=== PATIENT | female | born 1975 | race Caucasian/White ===

== ENCOUNTER 2016-09-16 22:06 | Emergency (ER) | payer SELFPAY ==
[~2016-09-16] VITALS: Ht 165.1 cm; Wt 88.0 kg
[2016-09-16 22:14] VITALS: BP 110/60; PULSE 68; RESP 16; TEMP 97.2; O2SAT 99
[2016-09-16] MEDS ORDERED: SODIUM CHLOR 0.9% 1000 ML INJ 1,000 ML IV SCH (22:28)
--- NOTE | 2016-09-16 22:29 | PD ---
HPI Chief Complaint: Flank/Kidney Pain Time Seen by Provider: 22:29 Travel History International Travel<30 days: No Contact w/Intl Traveler<30days: No Traveled to known affect area: No History of Present Illness HPI 41-year-old female presents to the emergency department for evaluation right flank pain that radiates to the right groin. She states this started at 7:30 PM today. Patient states she had a mild upset stomach before that. She states this started with some mild right groin pain and then worsened. She states the pain is 8/10 now. Patient states she has had nephrolithiasis in the past, but states this pain is worse. She reports history of hysterectomy, appendectomy, C -section. She reports history of migraines. [facility] Past Medical History Headaches: Yes Kidney Stones: Yes Tetanus Vaccination: Unknown Influenza Vaccination: Yes ?: Not : 5 Para: 3 Past Surgical History Appendectomy: Yes Section: Yes (x2) Hysterectomy: Yes Social History Alcohol Use: No Tobacco Use: No Substance Use: No Allergies-Medications (Allergen,Severity, Reaction): Coded Allergies: No Known Allergies (Unverified , 09/16/16) Review of Systems Except as stated in HPI: all other systems reviewed are Neg Physical Exam Narrative GENERAL: Well-nourished, well-developed female patient, afebrile. SKIN: Focused skin assessment warm/dry. HEAD: Normocephalic. Atraumatic. EYES: No scleral icterus. No injection or drainage. NECK: Supple, trachea midline. No JVD or lymphadenopathy. CARDIOVASCULAR: Regular rate and rhythm without murmurs, gallops, or rubs. RESPIRATORY: Breath sounds equal bilaterally. No accessory muscle use. Lungs sounds are clear to auscultation. GASTROINTESTINAL: Abdomen soft and nondistended. Patient has tenderness over right upper and lower quadrants. MUSCULOSKELETAL: No cyanosis, or edema. BACK: Nontender without obvious deformity. Right CVA tenderness. Data Data Last Documented VS Vital Signs Date Time Temp Pulse Resp B/P Pulse Ox O2 Delivery O2 Flow Rate FiO2 09/16/16 22:28 16 09/16/16 22:14 97.2 68 110/60 99 Orders Morphine Inj (Morphine Inj) (09/16/16 22:30) Complete Blood Count With Diff (09/16/16 22:28) Comprehensive Metabolic Panel (09/16/16 22:28) Lipase (09/16/16 22:28) Urinalysis - C+S If Indicated (09/16/16 22:28) Ct Abd/Pel W/O Iv Contrast (09/16/16 22:28) Iv Access Insert/Monitor (09/16/16 22:28) Ecg Monitoring (09/16/16 22:28) Oximetry (09/16/16 22:28) Ondansetron Inj (Zofran Inj) (09/16/16 22:30) Sodium Chlor 0.9% 1000 Ml Inj (Ns 1000 M (09/16/16 22:28) Sodium Chloride 0.9% Flush (Ns Flush) (09/16/16 22:30) Ketorolac Inj (Toradol Inj) (09/16/16 22:30) MDM Medical Decision Making Medical Screen Exam Complete: Yes Emergency Medical Condition: Yes Medical Record Reviewed: Yes Differential Diagnosis Nephrolithiasis versus pyelonephritis versus UTI Narrative Course 41-year-old female presents to the emergency department for evaluation of right flank pain that radiates to the right groin. CBC, CMP, lipase, UA are ordered and pending. CT the abdomen/pelvis without contrast is ordered and pending. Patient is given normal saline 1 L IV bolus, morphine 4 mg IV, Toradol 30 mg IV , Zofran 4 mg IV. My attending physician, Dr. Noguera, will resume care and disposition. Brooke Infante Sep 16, 2016 22:29
[2016-09-16] MEDS ORDERED: ONDANSETRON HCL 4 MG/2 ML VIAL IVP ONE (22:30)
[2016-09-16] MEDS ORDERED: SODIUM CHLORIDE 0.9% FLUSH 10 ML FLUSH IV FLUSH PRN (22:30)
[2016-09-16] MEDS ORDERED: MORPHINE SULFATE 4 MG/ML INJ IV PUSH ONE (22:30)
[2016-09-16] MEDS ORDERED: KETOROLAC TROMETHAMINE 30 MG/ML (IVP) VIAL IVP ONE (22:30)
[2016-09-16 23:15] LABS: AUTOMATED NEUTROPHIL # 2.1 TH/MM3 (1.8-7.7); BASOPHIL % 0.1 % (0.0-2.0); LYMPH % 26.4 % (9.0-44.0); LYMPHOCYTE # 0.8 TH/MM3 (1.0-4.8); MEAN CELL VOLUME 91.3 FL (80.0-100.0); MEAN CORPUSCULAR HEMOGLOBIN 31.1 PG (27.0-34.0); MONO % 7.5 % (0.0-8.0); PLATELET COUNT 120 TH/MM3 (150-450); RED BLOOD COUNT 2.12 MIL/MM3 (4.00-5.30); RED CELL DISTRIBUTION WIDTH 12.9 % (11.6-17.2); WHITE BLOOD COUNT 3.2 TH/MM3 (4.0-11.0)
[2016-09-16 23:21] LABS: BACTERIA, URINE RARE /hpf; BLOOD, URINE TRACE (NEG); COMMENT (UR) CULT NOT INDICATED; CULTURE IF INDICATED CULT NOT INDICATED; GLUCOSE,URINE NEG (NEG); KETONE, URINE NEG (NEG); MUCUS URINE FEW /lpf (OCC); NITRITE,URINE NEG (NEG); PH, URINE 7.5 (5.0-8.5); SQUAMOUS EPITHELIAL CELL URINE 1 /hpf (0-5); URINE COLOR LIGHT-YELLOW (YELLW/STRAW)
[2016-09-16 23:24] VITALS: RESP 16; O2SAT 99
[2016-09-16 23:28] VITALS: RESP 16
[2016-09-16 23:33] LABS: ANION GAP 10 MEQ/L (5-15); AST (GOT) 12 U/L (15-37); BICARBONATE 22.8 MEQ/L (21.0-32.0); BLOOD UREA NITROGEN 15 MG/DL (7-18); CHLORIDE 111 MEQ/L (98-107); GLOMERULAR FILTRATION RATE 63 ML/MIN (>89); POTASSIUM 3.3 MEQ/L (3.5-5.1); SODIUM (NA) 144 MEQ/L (136-145)
[2016-09-16 23:34] LABS: ALT (GPT) 19 U/L (10-53)
[2016-09-16 23:36] LABS: ALKALINE PHOSPHATASE 61 U/L (45-117); TOTAL BILIRUBIN ADULT 0.4 MG/DL (0.2-1.0)
[2016-09-16 23:53] LABS: HEMO FLAGS AUTO DIFF
[2016-09-16 23:57] LABS: HEMATOCRIT 19.4 % (35.0-46.0)
--- NOTE | 2016-09-16 23:57 | RADRPT ---
EXAM DATE/TIME: 09/16/2016 23:29 [place] COMPARISON: No previous studies available for comparison. INDICATIONS : Right side flank pain. ORAL CONTRAST: No oral contrast ingested. RADIATION DOSE: 8.52 CTDIvol (mGy) MEDICAL HISTORY : Renal calculi. SURGICAL HISTORY : Appendectomy. Hysterectomy. section. ENCOUNTER: Initial ACUITY: 1 day PAIN SCALE: 10/10 LOCATION: Right flank TECHNIQUE: Volumetric scanning of the abdomen and pelvis was performed. Using automated exposure control and ad justment of the mA and/or kV according to patient size, radiation dose was kept as low as reasonably achievable to obtain optimal diagnostic quality images. DICOM format image data is available electro nically for review and comparison. FINDINGS: LOWER LUNGS: The visualized lower lungs are clear. LIVER: Homogeneous density without lesion. There is no dilation of the biliary tree. No calcified gallston es. SPLEEN: Normal size without lesion. PANCREAS: Within normal limits. KIDNEYS: The right kidney is normal in size and shape with mild to moderate hydronephrosis. There is dilatatio n of the right ureter down to level there is a junction to a 3 x 4 mm calculus. The left kidney conta ins a large mildly complex cyst measuring up to 12.9 x 10 x 10.3 cm. There is a subtle septation. The re is no definite hydronephrosis. There is a 2-3 mm proximal left ureteral calculus. There is a tiny less than 1 mm left renal calculus. ADRENAL GLANDS: Within normal limits. VASCULAR: There is no aortic aneurysm. BOWEL/MESENTERY: The stomach, small bowel, and colon demonstrate no acute abnormality. There is no free intraperitone al air or fluid. ABDOMINAL WALL: Within normal limits. RETROPERITONEUM: There is no lymphadenopathy. BLADDER: No wall thickening or mass. REPRODUCTIVE: Within normal limits. INGUINAL: There is no lymphadenopathy or hernia. MUSCULOSKELETAL: Within normal limits for patient age. CONCLUSION: 1. Distal right ureteral calculus at the level of the ureterovesicular junction with mild to moderate hydronephrosis and hydroureter. 2. 2-3 mm proximal left ureteral calculus with no definite hydronephrosis. 3. Large complex left renal cystic lesion. Andreas Baez MD on September 16, 2016 at 23:51 Board Certified Radiologist. This report was verified electronically.
[2016-09-17] MEDS ORDERED: ZOFR4TAB3 SL (00:47)
[2016-09-17] MEDS ORDERED: HYDR-3533 PO (00:47)
--- NOTE | 2016-09-17 00:47 | PD ---
Physical Exam Date Seen by Provider: Sep 16, 2016 Time Seen by Provider: 23:00 Narrative I, Dr. Noguera, have reviewed the advance practice practitioner's documentation and am in agreement, met with the patient face to face, made the diagnosis, and the medical decision making was done by me. *My assessment and Findings: Patient is seen and evaluated with nurse practitioner, please see previous note for further details. Awaiting CAT scan for further workup. Her lab work also pending. Laboratory Tests Test 09/16/16 22:30 White Blood Count 3.2 TH/MM3 (4.0-11.0) Red Blood Count 2.12 MIL/MM3 (4.00-5.30) Hemoglobin 6.6 GM/DL (11.6-15.3) Hematocrit 19.4 % (35.0-46.0) Platelet Count 120 TH/MM3 (150-450) Lymphocytes # (Auto) 0.8 TH/MM3 (1.0-4.8) Urine Turbidity HAZY (CLEAR) Urine Occult Blood TRACE (NEG) Urine RBC 4 /hpf (0-3) Urine Bacteria RARE /hpf (NONE) Urine Mucus FEW /lpf (OCC) Potassium Level 3.3 MEQ/L (3.5-5.1) Chloride Level 111 MEQ/L (98-107) Estimat Glomerular Filtration 63 ML/MIN (>89) Rate Aspartate Amino Transf 12 U/L (15-37) (AST/SGOT) Last 24 hours Impressions Abdomen/Pelvis CT 09/16/16 3408 Signed Impressions: Service Date/Time: Friday, September 16, 2016 23:29 - CONCLUSION: 1. Distal right ureteral calculus at the level of the ureterovesicular junction with mild to moderate hydronephrosis and hydroureter. 2. 2-3 mm proximal left ureteral calculus with no definite hydronephrosis. 3. Large complex left renal cystic lesion. Andreas Baez MD Lab work shows hemoglobin of 6.6 and on further questioning, patient states that she has history of chronic anemia in the past and never had the cause of initially diagnosed. She states that she used to have to have iron infusions for this. She had tried to take iron pills in the past but it made her violently vomited and nauseous and it never worked due to a underlying metabolic process in her. She states she has not had any chest pains, shortness of breath, weakness, or other symptoms related to the anemia. She denies any black stools or any bleeding anywhere. She states that she walks 3 miles daily with her without issues. At this point, I suspect that this issue is more of a chronic issue since she has not symptomatic. I have also talked her regarding transfusion should she feel like that may help her but she is declining at this time stating that she feels fine and does not want to get a transfusion here in [place]. She states that she will be going home in a few days. Her CAT scan shows a 3-4 mm stone in the right distal ureter causing hydronephrosis causing her pain. At this point, my plan would be to release her with symptomatic relief or pain. She appears fairly comfortable in the ER after the initial dose of pain medications. She should return for any worsening in pain, vomiting, fevers, or new symptoms as needed. The plan has been discussed with her and she states understanding. She will need to strain her urine and see a urologist on return to home. Data Data Last Documented VS Vital Signs Date Time Temp Pulse Resp B/P Pulse Ox O2 Delivery O2 Flow Rate FiO2 09/16/16 23:28 16 09/16/16 23:24 99 Room Air 09/16/16 22:14 97.2 68 110/60 Orders Morphine Inj (Morphine Inj) (09/16/16 22:30) Complete Blood Count With Diff (09/16/16 22:28) Comprehensive Metabolic Panel (09/16/16 22:28) Lipase (09/16/16 22:28) Urinalysis - C+S If Indicated (09/16/16 22:28) Ct Abd/Pel W/O Iv Contrast (09/16/16 22:28) Iv Access Insert/Monitor (09/16/16 22:28) Ecg Monitoring (09/16/16 22:28) Oximetry (09/16/16 22:28) Ondansetron Inj (Zofran Inj) (09/16/16 22:30) Sodium Chlor 0.9% 1000 Ml Inj (Ns 1000 M (09/16/16 22:28) Sodium Chloride 0.9% Flush (Ns Flush) (09/16/16 22:30) Ketorolac Inj (Toradol Inj) (09/16/16 22:30) Labs Laboratory Tests Test 09/16/16 22:30 White Blood Count 3.2 TH/MM3 Red Blood Count 2.12 MIL/MM3 Hemoglobin 6.6 GM/DL Hematocrit 19.4 % Mean Corpuscular Volume 91.3 FL Mean Corpuscular Hemoglobin 31.1 PG Mean Corpuscular Hemoglobin 34.0 % Concent Red Cell Distribution Width 12.9 % Platelet Count 120 TH/MM3 Mean Platelet Volume 9.9 FL Neutrophils (%) (Auto) 65.0 % Lymphocytes (%) (Auto) 26.4 % Monocytes (%) (Auto) 7.5 % Eosinophils (%) (Auto) 1.0 % Basophils (%) (Auto) 0.1 % Neutrophils # (Auto) 2.1 TH/MM3 Lymphocytes # (Auto) 0.8 TH/MM3 Monocytes # (Auto) 0.2 TH/MM3 Eosinophils # (Auto) 0.0 TH/MM3 Basophils # (Auto) 0.0 TH/MM3 CBC Comment AUTO DIFF Urine Color LIGHT-YELLOW Urine Turbidity HAZY Urine pH 7.5 Urine Specific Jet 1.010 Urine Protein NEG mg/dL Urine Glucose (UA) NEG mg/dL Urine Ketones NEG mg/dL Urine Occult Blood TRACE Urine Nitrite NEG Urine Bilirubin NEG Urine Urobilinogen LESS THAN 2.0 MG/DL Urine Leukocyte Esterase NEG Urine RBC 4 /hpf Urine WBC 1 /hpf Urine Squamous Epithelial 1 /hpf Cells Urine Amorphous Sediment RARE Urine Bacteria RARE /hpf Urine Mucus FEW /lpf Microscopic Urinalysis Comment CULT NOT INDICATED Sodium Level 144 MEQ/L Potassium Level 3.3 MEQ/L Chloride Level 111 MEQ/L Carbon Dioxide Level 22.8 MEQ/L Anion Gap 10 MEQ/L Blood Urea Nitrogen 15 MG/DL Creatinine 0.97 MG/DL Estimat Glomerular Filtration 63 ML/MIN Rate Random Glucose 103 MG/DL Calcium Level 9.2 MG/DL Total Bilirubin 0.4 MG/DL Aspartate Amino Transf 12 U/L (AST/SGOT) Alanine Aminotransferase 19 U/L (ALT/SGPT) Alkaline Phosphatase 61 U/L Total Protein 6.9 GM/DL Albumin 3.6 GM/DL Lipase 106 U/L [facility] Medical Record Reviewed: Yes Supervised Visit with JULIANA: Yes Diagnosis Primary Impression: Renal colic Additional Impression: Chronic anemia Med/Other Pt SpecificInfo: Prescription(s) given Scripts Ondansetron Odt (Zofran Odt)4 Mg Tab4 Mg SL Q6HR PRN (Nausea/Vomiting) #7 TAB Ref 0 Prov:Mahogany Noguera MD 09/17/16 Hydrocodone-Acetaminophen (Lortab)5-325 Mg Tab1-2 Tab PO Q6H PRN (PAIN) #20 TAB Ref 0 Prov:Mahogany Noguera MD 09/17/16 Disposition: 01 DISCHARGE HOME Condition: Stable Mahogany Noguera MD Sep 17, 2016 00:47
[2016-09-17 01:25] LABS: SCAN/DIFF AUTO DIFF CONFIRMED
== END 2016-09-17 01:06 | disposition home or self-care (01) ==
LOC: NEPC 22:06
DX: N23 Unspecified renal colic (principal); D64.9 Anemia, unspecified
CPT/HCPCS: 74176; 80053; 81001; 83690; 85025; 96361; 96374; 96375; 99285; J1885; J2270; J2405; J7030